=== PATIENT | male | born 1970 | race Caucasian/White ===

== ENCOUNTER 2021-07-03 05:39 | Outpatient (CLI) | payer BC, OTHER ==
[~2021-07-03] VITALS: Ht 177.8 cm; Wt 102.5 kg
[2021-07-08] MEDS ORDERED: LOSA100T57 PO (11:35)
[2021-07-08] MEDS ORDERED: PARO20TA5 PO (11:35)
[2021-07-08] MEDS ORDERED: AMLO-251 PO (11:35)
[2021-07-08] MEDS ORDERED: SIMV20TA26 PO (11:35)
[2021-07-08] MEDS ORDERED: METO-333 PO (11:35)
[2021-07-08] MEDS ORDERED: TRIA1CAP4 PO (11:35)
== END 2021-07-08 11:41 | disposition home or self-care (01) ==
LOC: PREOP 05:39
PROVIDERS: ATTEND Surgery
DX: Z01.818 Encounter for other preprocedural examination (principal)

== ENCOUNTER 2021-07-10 10:27 | Day surgery (SDC) | payer BC ==
[~2021-07-10] VITALS: Ht 177.8 cm; Wt 102.5 kg
[2021-07-10] VITALS (11 sets, daily range): BP systolic 127–152; BP diastolic 80–97
[~2021-07-10 10:27] MED LIST: AMLO-251 PO; LOSA100T57 PO; METO-333 PO; PARO20TA5 PO; SIMV20TA26 PO; TRIA1CAP4 PO
--- NOTE | 2021-07-10 10:57 | Progress Note-Pre Operative ---
Pre-Operative Progress Note H&P Reviewed The H&P was reviewed, patient examined and no changes noted. Date Seen by Provider: Jul 10, 2021 Time Seen by Provider: 10:55 Date H&P Reviewed: Jul 10, 2021 Time H&P Reviewed: 10:50 Pre-Operative Diagnosis: Symptomatic umbilical hernia RAJI VYAS APRN Jul 10, 2021 10:57
[2021-07-10] MEDS ORDERED: HYDR-3817 PO (10:58)
--- NOTE | 2021-07-10 10:59 | Discharge Inst-Surgical ---
D/C Lap Instructions-KIDO Reconcile Patient Problems Problems Reviewed?: Yes New, Converted, or Re-Newed RX: RX on Chart Follow Up Appt in 2 weeks Activity as tolerated No driving for 24 hours No driving while on pain medications Incentive Spirometry use every 2 hours while awake Regular Diet Symptoms to Report: Fever over 101 degree F, Nausea/Vomiting Infection Signs and Symptoms to report: Increased redness, Foul odor of wound, Increased drainage Bathing instructions: May shower Operative Area Clean/Dry; Keep incision clean/dry If any problems/questions: Contact your physician or go to Emergency Room RAJI VYAS APRN Jul 10, 2021 10:59
[2021-07-10] MEDS ORDERED: ONDANSETRON 4 MG/2 ML (SDV) Z0FRAN IVP PRN (11:00)
[2021-07-10] MEDS ORDERED: HYDROcodone/APAP 5 MG/325 MG (LORTAB) TAB PO ONE (11:00)
[2021-07-10] MEDS ORDERED: morphine INJ 10 MG/ML 1ML (SYR OR VIAL) IVP PRN (11:00)
[2021-07-10] MEDS ORDERED: ACETAMINOPHEN 325 MG TABLET PO PRN (11:00)
[2021-07-10] MEDS ORDERED: LACTATED RINGERS 1,000 ML IV PRN (11:15)
[2021-07-10] MEDS ORDERED: ceFAZolin 2 GM IV Premixed 50 ML IV ONE (11:15)
[2021-07-10] MEDS ORDERED: MIDAZOLAM 2 MG/2 ML (VERSED) VIAL ONE ×2 (11:27→12:00)
[2021-07-10] MEDS ORDERED: FAMOTIDINE 20MG/2ML IV (PEPCID) IVP ONE (11:30)
[2021-07-10] MEDS ORDERED: MIDAZOLAM 2 MG/2 ML (VERSED) VIAL IVP ONE (11:30)
[2021-07-10] MEDS ORDERED: fentaNYL INJ 100 MCG/2 ML AMP ONE ×2 (12:00→13:00)
[2021-07-10] MEDS ORDERED: LIDOCAINE/EPI 1%-1:100,000 (XYLOCAINE) 20ML ONE (12:03)
[2021-07-10] MEDS ORDERED: ROCURONIUM 10 MG/ML 5 ML SYRINGE IV ONE (12:47)
[2021-07-10] MEDS ORDERED: ONDANSETRON 4 MG/2 ML (SDV) Z0FRAN ONE (12:47)
[2021-07-10] MEDS ORDERED: proPOfol 200 MG/20 ML (DIPRIVAN) VIAL IV ONE (12:47)
[2021-07-10] MEDS ORDERED: LIDOCAINE PF 2% 5 ML (XYLOCAINE) VIAL ONE (12:47)
[2021-07-10] MEDS ORDERED: SEVOFLURANE (ULTANE) 15 ML INHAL SOLN ONE (12:47)
--- NOTE | 2021-07-10 12:51 | Progress Note-Post Operative ---
Post-Operative Progess Note Surgeon (s)/Clean Up Worker (s) Surgeon SAMANTHA LUU MD Clean Up Worker: cory souza FIELD EXAMINER Pre-Operative Diagnosis Symptomatic umbilical hernia Post-Operative Diagnosis same Procedure & Operative Findings Date of Procedure 07/10/21 Procedure Performed/Findings open umbilical hernia repair with mesh. Anesthesia Type get Estimated Blood Loss Estimated blood loss (mL): minimal Specimens/Packing Specimens Removed none SAMANTHA LUU MD Jul 10, 2021 12:51
--- NOTE | 2021-07-10 14:32 | Anesthesia-General Post-Op ---
General Patient Condition Mental Status/LOC: Same as Preop Cardiovascular: Satisfactory Nausea/Vomiting: Absent Respiratory: Satisfactory Pain: Controlled Complications: Absent Post Op Complications Complications None Follow Up Care/Instructions Patient Instructions None needed. Anesthesia/Patient Condition Patient Condition Patient is doing well, no complaints, stable vital signs, no apparent adverse anesthesia problems. No complications reported per nursing. LUZMA GUZMAN CRNA Jul 10, 2021 14:31
--- NOTE | 2021-07-10 15:05 | OPERATIVE REPORT ---
DATE OF SERVICE: 07/10/2021 ATTENDING PRIMARY CARE PHYSICIAN: Jason Ruiz DO PREOPERATIVE DIAGNOSIS: Symptomatic reducible umbilical hernia. POSTOPERATIVE DIAGNOSIS: Symptomatic reducible umbilical hernia. PROCEDURE: Open umbilical hernia repair with mesh. SURGEON: Samantha Luu MD EKG MONITOR TECH: Jim Estrella APRN ANESTHESIA: General endotracheal. ESTIMATED BLOOD LOSS: Minimal. FINDINGS: Same as postoperative diagnosis. DISPOSITION: The patient tolerated the procedure well. INDICATIONS: The patient is a 50-year-old male who noticed a bulge in the umbilical region a few months ago. He states that over time this grew larger in size and became painful. He was seen by his physician and was found to have a symptomatic reducible umbilical hernia, which we had also identified in the office. He is otherwise doing well, tolerating a regular diet and having normal bowel movements. DESCRIPTION OF PROCEDURE: The patient was brought to the operating room, laid supine on the table. After adequate IV pain and sedative medications and general endotracheal intubation, the abdomen was prepped and draped in standard surgical fashion. A 0.5% Marcaine with epinephrine was then used to anesthetize the overlying skin in the supraumbilical region. A crescent-shaped skin incision made using a 15 blade. The subcutaneous tissue was then dissected using electrocautery. The hernia sac was identified and completely dissected out using blunt dissection as well as electrocautery to the fascial base. The hernia sac was then opened using Metzenbaum scissors with only omentum within the hernia sac. The hernia sac was then excised under direct visualization using electrocautery. The defect was approximately 1.5 cm in size and a 6.4 cm round coated polypropylene mesh was then placed into the fascial defect and sutured concentrically to the fascia using interrupted 0 Prolene sutures. Good hemostasis was observed. The skin was then reapproximated using 3-0 Vicryl interrupted sutures. Skin was closed using 4-0 Monocryl running subcuticular suture. Wound was then cleaned and covered with Dermabond. Tonsil sponges were then placed in the umbilicus followed by 4 x 4 gauze followed by large Op-Site. This was then followed by abdominal binder. The patient tolerated the procedure well. IV normal pain medication as well as a clear liquid diet. Once he is tolerating clears as good pain control with oral pain medications, ambulating well, we will discharge him home. He will be instructed to do no heavy lifting or exertion for the next two weeks and keep the pressure dressing on for approximately 5 days and then removed and to continue to wear the abdominal binder, both day and night for the next two weeks. Job ID: [id number] DocumentID: [id number] Dictated Date: 07/10/2021 12:48:38 Pellet Mill Operator Date: 07/10/2021 15:04:02 Dictated By: SAMANTHA LUU MD
== END 2021-07-10 14:55 ==
LOC: SDC 10:27
PROVIDERS: ATTEND Surgery
DX: K42.9 Umbilical hernia without obstruction or gangrene (principal); I10 Essential (primary) hypertension; E78.5 Hyperlipidemia, unspecified; F41.9 Anxiety disorder, unspecified; F17.220 Nicotine dependence, chewing tobacco, uncomplicated; Z79.899 Other long term (current) drug therapy; Z83.3 Family history of diabetes mellitus
CPT/HCPCS: 49585; 87081; C1781